=== PATIENT | female | born 1980 | race Caucasian/White ===

== ENCOUNTER 2018-09-04 11:25 | Emergency (ER) | payer OTHER, MEDICAID, SELFPAY ==
[2018-09-04 11:32] VITALS: BP 131/82; PULSE 128; RESP 20; TEMP 36.2; O2SAT 100; BMI 18.8
--- NOTE | 2018-09-04 12:10 | ED.ABDPAIN ---
HPI - Abdominal Pain <Zyada Carrion PA-C - Last Filed: 09/04/18 19:49> General Chief Complaint: Abdominal Pain Stated Complaint: Crohns Flare Time Seen by Provider: 09/04/18 12:06 Source: patient Mode of arrival: ambulatory Limitations: no limitations History of Present Illness HPI narrative: This 38-year-old female comes to ED secondary to ?Crohn's disease flare?. She states that for the last couple, she has felt miserable, with constant nausea and occasional vomiting (once today). She has intermittent crampy abdominal pain that comes and goes, better curled up on her side, worse stretching out. Her nausea is worse with food. She has been able to keep down small amounts of fluid. She states that she has felt somewhat cold and warm, does not think she has had a fever. She states that she had diarrhea once this morning with some blood in it, no mucus. She states that she has been under a considerable amount of stress with suddenly having to move here, and it is not unusual for her to have a flare under those circumstances. This feels typical to her. She denies any new urinary symptoms. She denies any possibility of . She states that if she has milder symptoms she will start sulfasalazine, but when more severe she typically needs prednisone as she thinks she might now. She has just moved here and does not have medicines. She denies any other complaints such as chest pain or dyspnea on systems review. She has not had any recent antibiotics or known exposures. She notes that her heart rate always tends to be a bit high. Related Data Previous Rx's Medication Instructions Recorded hydrocodone-acetaminophen [Armona] 1 tab PO Q4-6H PRN #7 tab 09/04/18 prednisone 40 mg PO DAILY 6 Days #12 tab 09/04/18 promethazine 25 mg SC Q6H #12 each 09/04/18 Allergies Allergy/AdvReac Type Severity Reaction Status Date / Time amoxicillin [From Augmentin] Allergy Diarrhea Verified 09/04/18 11:31 clavulanic acid Allergy Diarrhea Verified 09/04/18 11:31 [From Augmentin] Review of Systems <Zayda Carrion PA-C - Last Filed: 09/04/18 19:49> Review of Systems ROS Unobtainable: All systems reviewed & are unremarkable except as noted in HPI and below PFSH <Zayda Carrion PA-C - Last Filed: 09/04/18 19:49> Medical History (Updated 09/04/18 @ 16:20 by Zayda Carrion PA-C) Anxiety with depression (Chronic) Crohn's disease (Chronic) PTSD (post-traumatic stress disorder) (Chronic) Surgical History (Updated 09/04/18 @ 12:43 by Zayda Carrion PA-C) History of bowel resection (Resolved) Social History Smoking Status: Never smoker Social History Smoking Status: Never smoker Exam <Zayda Carrion PA-C - Last Filed: 09/04/18 19:49> Narrative Exam Narrative: GENERAL APPEARANCE: Patient resting, occasionally tearful but in NAD HEENT: PERRL, EOMI, conjunctivae pink no scleral icterus NECK: Supple, no masses LUNGS: Clear to auscultation bilaterally. HEART: Rate and rhythm regular, normal S1 and S2, no S3 or S4. ABDOMEN: Faded mid surgical scar noted. Soft, nondistended, bowel sounds present x 4 quadrants, no masses palpable, no hepatosplenomegaly. Generalized lower quadrant tenderness throughout without guarding or rebound, no CVAT EXTREMITIES: No edema, no cyanosis DERMATOLOGIC: No jaundice or exanthem NEUROLOGIC: Alert and oriented with normal speech and coordination Initial Vital Signs Initial Vital Signs: Vital Signs Temperature 97.1 F L 09/04/18 11:32 Pulse Rate 128 H 09/04/18 11:32 Respiratory Rate 20 09/04/18 11:32 Blood Pressure 131/82 09/04/18 11:32 Pulse Oximetry 100 09/04/18 11:32 <Noam Fritz DO - Last Filed: 09/06/18 07:53> Initial Vital Signs Initial Vital Signs: Vital Signs Temperature 97.1 F L 09/04/18 11:32 Pulse Rate 128 H 09/04/18 11:32 Respiratory Rate 20 09/04/18 11:32 Blood Pressure 131/82 09/04/18 11:32 Pulse Oximetry 100 09/04/18 11:32 Course <Zayda Carrion PA-C - Last Filed: 09/04/18 19:49> Additional Information: Patient reported good improvement in nausea, moderate improvement in pain prior to discharge. She is tolerating oral fluid, putting and applesauce. She feels as though this is similar to her previous Crohn's flares brought on by her stressors. Given prednisone here and she will continue this. She needs a local PCP for follow-up next week and will call Resource line on Thursday to get set up for follow-up. She agreed to return if any acutely worsening symptoms in the interim Orders Ordered: Discontinued Medications Acetaminophen (Tylenol) 650 mg PO NOW ONE Stop: 09/04/18 16:43 Last Admin: 09/04/18 16:43 Dose: 650 mg Sodium Chloride (Normal Saline 0.9%) 1,000 mls @ 1,000 mls/hr IV BOLUS ONE Stop: 09/04/18 13:26 Last Infusion: 09/04/18 15:45 Dose: 0 mls/hr Admin: 09/04/18 13:33 Dose: 500 mls/hr Morphine Sulfate (Morphine) 4 mg IV NOW ONE Stop: 09/04/18 13:04 Last Admin: 09/04/18 13:43 Dose: 4 mg Ondansetron HCl (Zofran) 4 mg IV NOW ONE Stop: 09/04/18 12:28 Last Admin: 09/04/18 13:34 Dose: 4 mg Prednisone (Deltasone) 40 mg PO NOW ONE Stop: 09/04/18 15:22 Last Admin: 09/04/18 15:27 Dose: 40 mg Vital Signs - 8 hr 09/04/18 13:45 09/04/18 15:29 09/04/18 16:55 Pulse Rate 87 87 80 Respiratory Rate 16 16 14 Blood Pressure [Left Arm] 114/82 115/79 114/72 Pulse Oximetry 100 100 <Noam Fritz DO - Last Filed: 09/06/18 07:53> Orders Ordered: Discontinued Medications Acetaminophen (Tylenol) 650 mg PO NOW ONE Stop: 09/04/18 16:43 Last Admin: 09/04/18 16:43 Dose: 650 mg Sodium Chloride (Normal Saline 0.9%) 1,000 mls @ 1,000 mls/hr IV BOLUS ONE Stop: 09/04/18 13:26 Last Infusion: 09/04/18 15:45 Dose: 0 mls/hr Admin: 09/04/18 13:33 Dose: 500 mls/hr Morphine Sulfate (Morphine) 4 mg IV NOW ONE Stop: 09/04/18 13:04 Last Admin: 09/04/18 13:43 Dose: 4 mg Ondansetron HCl (Zofran) 4 mg IV NOW ONE Stop: 09/04/18 12:28 Last Admin: 09/04/18 13:34 Dose: 4 mg Prednisone (Deltasone) 40 mg PO NOW ONE Stop: 09/04/18 15:22 Last Admin: 09/04/18 15:27 Dose: 40 mg Vital Signs - 8 hr 09/04/18 13:45 09/04/18 15:29 09/04/18 16:55 Pulse Rate 87 87 80 Respiratory Rate 16 16 14 Blood Pressure [Left Arm] 114/82 115/79 114/72 Pulse Oximetry 100 100 MDM - Abdominal Pain <Zayda Carrion PA-C - Last Filed: 09/04/18 19:49> Lab Data Result diagrams: 09/04/18 14:18 09/04/18 14:18 Lab Results 09/04/18 09/04/18 09/04/18 Range/Units 14:18 14:18 14:18 WBC 6.6 (4.5-11.0) X10^3/uL RBC 4.68 (4.0-5.2) X10^6/uL Hgb 14.1 (12.0-16.0) g/dL Hct 41.2 (36-46) % MCV 88.1 (80-100) fL MCH 30.2 (26-34) PG MCHC 34.3 (30-36) % RDW 13.9 (11.6-14.8) % Plt Count 214 (150-400) X10^3/uL Neut % (Auto) 87.7 H (50-75) % Lymph % (Auto) 8.6 L (25-40) % [place] % (Auto) 3.1 (3-14) % Eos % (Auto) 0.1 L (2-4) % Baso % (Auto) 0.5 (0-2) % Neut # (Auto) 5800 (0508-9725) /uL Lymph # (Auto) 600 L (3969-4386) /uL [place] # (Auto) 200 (0-900) /uL Eos # (Auto) 0 (0-450) /uL Baso # (Auto) 0 (0-100) /uL PT 11.7 (10.1-12.7) SECONDS INR 1.0 (0.9-1.3) APTT 34 (26.4-36.2) SECONDS Sodium 141 (137-145) mmol/L Potassium 4.3 (3.4-5.1) mmol/L Chloride 105 (98-107) mmol/L Carbon Dioxide 30 (22-32) mmol/L BUN 10 (7-17) mg/dL Creatinine 0.60 (0.52-1.04) mg/dL Estimated GFR > 60.0 (>60) mL/min BUN/Creatinine Ratio 16.7 (6-22) Glucose 94 (70-100) mg/dL Calcium 8.9 (8.4-10.2) mg/dL Total Bilirubin 0.4 (0.2-1.3) mg/dL AST 23 (14-36) IU/L ALT 34 (9-52) IU/L Alkaline Phosphatase 63 (38-126) U/L C-Reactive Protein (<1.0) mg/dL Total Protein 6.0 L (6.3-8.2) g/dL Albumin 3.6 (3.5-5.0) g/dL Globulin 2.4 (1.7-4.1) g/dL Albumin/Globulin Ratio 1.5 (1.0-2.8) Lipase 58 (23-300) U/L 09/04/18 Range/Units 14:18 WBC (4.5-11.0) X10^3/uL RBC (4.0-5.2) X10^6/uL Hgb (12.0-16.0) g/dL Hct (36-46) % MCV (80-100) fL MCH (26-34) PG MCHC (30-36) % RDW (11.6-14.8) % Plt Count (150-400) X10^3/uL Neut % (Auto) (50-75) % Lymph % (Auto) (25-40) % [place] % (Auto) (3-14) % Eos % (Auto) (2-4) % Baso % (Auto) (0-2) % Neut # (Auto) (1367-6442) /uL Lymph # (Auto) (3127-9763) /uL [place] # (Auto) (0-900) /uL Eos # (Auto) (0-450) /uL Baso # (Auto) (0-100) /uL PT (10.1-12.7) SECONDS INR (0.9-1.3) APTT (26.4-36.2) SECONDS Sodium (137-145) mmol/L Potassium (3.4-5.1) mmol/L Chloride (98-107) mmol/L Carbon Dioxide (22-32) mmol/L BUN (7-17) mg/dL Creatinine (0.52-1.04) mg/dL Estimated GFR (>60) mL/min BUN/Creatinine Ratio (6-22) Glucose (70-100) mg/dL Calcium (8.4-10.2) mg/dL Total Bilirubin (0.2-1.3) mg/dL AST (14-36) IU/L ALT (9-52) IU/L Alkaline Phosphatase (38-126) U/L C-Reactive Protein < 0.5 (<1.0) mg/dL Total Protein (6.3-8.2) g/dL Albumin (3.5-5.0) g/dL Globulin (1.7-4.1) g/dL Albumin/Globulin Ratio (1.0-2.8) Lipase (23-300) U/L Point of care testing: Point of Care Testing Test Results Negative Urine Dip Bedside Urine Glucose Negative Bedside Urine Bilirubin - Negative Bedside Urine Ketone - Negative Urine Specific Crystal 1.015 Bedside Urine Occult Blood - Negative Bedside Urine pH 6.0 Bedside Urine Protein - Negative Bedside Urine Urobilinogen - Negative Bedside Urine Nitrite - Negative Bedside Urine Leukocytes - Negative Esterase ECG Data Attestation: I personally reviewed and interpreted this ECG as follows: (Sinus tachycardia, rate 128, normal axis) Prior ECG tracings: not available for review <Noam Fritz DO - Last Filed: 09/06/18 07:53> Lab Data Lab Results 09/04/18 09/04/18 09/04/18 Range/Units 14:18 14:18 14:18 WBC 6.6 (4.5-11.0) X10^3/uL RBC 4.68 (4.0-5.2) X10^6/uL Hgb 14.1 (12.0-16.0) g/dL Hct 41.2 (36-46) % MCV 88.1 (80-100) fL MCH 30.2 (26-34) PG MCHC 34.3 (30-36) % RDW 13.9 (11.6-14.8) % Plt Count 214 (150-400) X10^3/uL Neut % (Auto) 87.7 H (50-75) % Lymph % (Auto) 8.6 L (25-40) % [place] % (Auto) 3.1 (3-14) % Eos % (Auto) 0.1 L (2-4) % Baso % (Auto) 0.5 (0-2) % Neut # (Auto) 5800 (1907-6414) /uL Lymph # (Auto) 600 L (3156-2222) /uL [place] # (Auto) 200 (0-900) /uL Eos # (Auto) 0 (0-450) /uL Baso # (Auto) 0 (0-100) /uL PT 11.7 (10.1-12.7) SECONDS INR 1.0 (0.9-1.3) APTT 34 (26.4-36.2) SECONDS Sodium 141 (137-145) mmol/L Potassium 4.3 (3.4-5.1) mmol/L Chloride 105 (98-107) mmol/L Carbon Dioxide 30 (22-32) mmol/L BUN 10 (7-17) mg/dL Creatinine 0.60 (0.52-1.04) mg/dL Estimated GFR > 60.0 (>60) mL/min BUN/Creatinine Ratio 16.7 (6-22) Glucose 94 (70-100) mg/dL Calcium 8.9 (8.4-10.2) mg/dL Total Bilirubin 0.4 (0.2-1.3) mg/dL AST 23 (14-36) IU/L ALT 34 (9-52) IU/L Alkaline Phosphatase 63 (38-126) U/L C-Reactive Protein (<1.0) mg/dL Total Protein 6.0 L (6.3-8.2) g/dL Albumin 3.6 (3.5-5.0) g/dL Globulin 2.4 (1.7-4.1) g/dL Albumin/Globulin Ratio 1.5 (1.0-2.8) Lipase 58 (23-300) U/L 09/04/ Range/Units 14:18 WBC (4.5-11.0) X10^3/uL RBC (4.0-5.2) X10^6/uL Hgb (12.0-16.0) g/dL Hct (36-46) % MCV (80-100) fL MCH (26-34) PG MCHC (30-36) % RDW (11.6-14.8) % Plt Count (150-400) X10^3/uL Neut % (Auto) (50-75) % Lymph % (Auto) (25-40) % [place] % (Auto) (3-14) % Eos % (Auto) (2-4) % Baso % (Auto) (0-2) % Neut # (Auto) (3605-9609) /uL Lymph # (Auto) (8215-5061) /uL [place] # (Auto) (0-900) /uL Eos # (Auto) (0-450) /uL Baso # (Auto) (0-100) /uL PT (10.1-12.7) SECONDS INR (0.9-1.3) APTT (26.4-36.2) SECONDS Sodium (137-145) mmol/L Potassium (3.4-5.1) mmol/L Chloride (98-107) mmol/L Carbon Dioxide (22-32) mmol/L BUN (7-17) mg/dL Creatinine (0.52-1.04) mg/dL Estimated GFR (>60) mL/min BUN/Creatinine Ratio (6-22) Glucose (70-100) mg/dL Calcium (8.4-10.2) mg/dL Total Bilirubin (0.2-1.3) mg/dL AST (14-36) IU/L ALT (9-52) IU/L Alkaline Phosphatase (38-126) U/L C-Reactive Protein < 0.5 (<1.0) mg/dL Total Protein (6.3-8.2) g/dL Albumin (3.5-5.0) g/dL Globulin (1.7-4.1) g/dL Albumin/Globulin Ratio (1.0-2.8) Lipase (23-300) U/L Point of care testing: Point of Care Testing Test Results Negative Urine Dip Bedside Urine Glucose Negative Bedside Urine Bilirubin - Negative Bedside Urine Ketone - Negative Urine Specific [place] 1.015 Bedside Urine Occult Blood - Negative Bedside Urine pH 6.0 Bedside Urine Protein - Negative Bedside Urine Urobilinogen - Negative Bedside Urine Nitrite - Negative Bedside Urine Leukocytes - Negative Esterase Discharge Plan Departure Patient Disposition: Home Clinical Impression: Crohn's colitis Qualifiers: Digestive disease complication type: with rectal bleeding Qualified Code(s): K50.111 - Crohn's disease of large intestine with rectal bleeding Discharge Date/Time: 09/04/18 16:56 Interventions: ED Discharge Assessment Last Done: 09/04/18 16:55 Instructions: DI for Crohn's Disease Flare Activity Restrictions/Additional Instructions: You should return to the emergency department as we talked about if you have acutely worsening symptoms, i.e. acutely worsening pain or unable to keep down fluids, or new symptoms such as high fever. Please take your next dose of prednisone tomorrow (I have sent in a week supply for you, and then you will need to continue or taper depending upon how you are feeling next week when you see your new primary care provider). I have also sent in a prescription for promethazine for you since that has been helpful in the past. I have given you a prescription for a few hydrocodone/acetaminophen since you have taken that in the past, hopefully the prednisone will help your for pain and inflammation quickly so you should need that for more than a day or so. Please continue to drink plenty of clear fluids and eat bland foods like applesauce, bananas, white rice, white toast. Remember no driving with the pain or nausea medicine as they can make you sleepy Please call the hospital health human resources assistant manager at [phone] 1st thing on Thursday morning. Let them know you were seen here in the emergency room and that we need to have you follow-up with a primary care provider middle of next week for reassessment. Please talk with your new primary care provider about restarting your anxiety medicines as well as getting a referral to a GI specialist Prescriptions: New prednisone 20 mg tablet 40 mg PO DAILY 6 Days Qty: 12 RF: 0 promethazine 25 mg suppository 25 mg SC Q6H Qty: 12 RF: 0 hydrocodone-acetaminophen [Armona] 5-325 mg tablet 1 tab PO Q4-6H PRN (Reason: acute abdominal pain) Qty: 7 RF: 0 <Noam Fritz DO - Last Filed: 09/06/18 07:53> [facility] Attestation: I was available for consultation during this patient's emergency department encounter
--- NOTE | 2018-09-04 12:13 | ED_ITS ---
HPI - Abdominal Pain <Zayda Carrion PA-C - Last Filed: 09/04/18 19:49> General Chief Complaint: Abdominal Pain Stated Complaint: Crohns Flare Time Seen by Provider: 09/04/18 12:06 Source: patient Mode of arrival: ambulatory Limitations: no limitations History of Present Illness HPI narrative: This 38-year-old female comes to ED secondary to ?Crohn's disease flare?. She states that for the last couple, she has felt miserable, with constant nausea and occasional vomiting (once today). She has intermittent crampy abdominal pain that comes and goes, better curled up on her side, worse stretching out. Her nausea is worse with food. She has been able to keep down small amounts of fluid. She states that she has felt somewhat cold and warm, does not think she has had a fever. She states that she had diarrhea once this morning with some blood in it, no mucus. She states that she has been under a considerable amount of stress with suddenly having to move here, and it is not unusual for her to have a flare under those circumstances. This feels typical to her. She denies any new urinary symptoms. She denies any possibility of . She states that if she has milder symptoms she will start sulfasalazine, but when more severe she typically needs prednisone as she thinks she might now. She has just moved here and does not have medicines. She denies any other complaints such as chest pain or dyspnea on systems review. She has not had any recent antibiotics or known exposures. She notes that her heart rate always tends to be a bit high. Related Data Previous Rx's Medication Instructions Recorded hydrocodone-acetaminophen [[place]] 1 tab PO Q4-6H PRN #7 tab 09/04/18 prednisone 40 mg PO DAILY 6 Days #12 tab 09/04/18 promethazine 25 mg IA Q6H #12 each 09/04/18 Allergies Allergy/AdvReac Type Severity Reaction Status Date / Time amoxicillin [From Augmentin] Allergy Diarrhea Verified 09/04/18 11:31 clavulanic acid Allergy Diarrhea Verified 09/04/18 11:31 [From Augmentin] Review of Systems <Zayda Carrion PA-C - Last Filed: 09/04/18 19:49> Review of Systems ROS Unobtainable: All systems reviewed & are unremarkable except as noted in HPI and below PFSH <Zayda Carrion PA-C - Last Filed: 09/04/18 19:49> Medical History (Updated 09/04/18 @ 16:20 by Zayda Carrion PA-C) Anxiety with depression (Chronic) Crohn's disease (Chronic) PTSD (post-traumatic stress disorder) (Chronic) Surgical History (Updated 09/04/18 @ 12:43 by Zayda Carrion PA-C) History of bowel resection (Resolved) Social History Smoking Status: Never smoker Social History Smoking Status: Never smoker Exam <Zayda Carrion PA-C - Last Filed: 09/04/18 19:49> Narrative Exam Narrative: GENERAL APPEARANCE: Patient resting, occasionally tearful but in NAD HEENT: PERRL, EOMI, conjunctivae pink no scleral icterus NECK: Supple, no masses LUNGS: Clear to auscultation bilaterally. HEART: Rate and rhythm regular, normal S1 and S2, no S3 or S4. ABDOMEN: Faded mid surgical scar noted. Soft, nondistended, bowel sounds present x 4 quadrants, no masses palpable, no hepatosplenomegaly. Generalized lower quadrant tenderness throughout without guarding or rebound, no CVAT EXTREMITIES: No edema, no cyanosis DERMATOLOGIC: No jaundice or exanthem NEUROLOGIC: Alert and oriented with normal speech and coordination Initial Vital Signs Initial Vital Signs: Vital Signs Temperature 97.1 F L 09/04/18 11:32 Pulse Rate 128 H 09/04/18 11:32 Respiratory Rate 20 09/04/18 11:32 Blood Pressure 131/82 09/04/18 11:32 Pulse Oximetry 100 09/04/18 11:32 <Noam Fritz DO - Last Filed: 09/06/18 07:53> Initial Vital Signs Initial Vital Signs: Vital Signs Temperature 97.1 F L 09/04/18 11:32 Pulse Rate 128 H 09/04/18 11:32 Respiratory Rate 20 09/04/18 11:32 Blood Pressure 131/82 09/04/18 11:32 Pulse Oximetry 100 09/04/18 11:32 Course <Zayda Carrion PA-C - Last Filed: 09/04/18 19:49> Additional Information: Patient reported good improvement in nausea, moderate improvement in pain prior to discharge. She is tolerating oral fluid, putting and applesauce. She feels as though this is similar to her previous Crohn's flares brought on by her stressors. Given prednisone here and she will continue this. She needs a local PCP for follow-up next week and will call Resource line on Thursday to get set up for follow-up. She agreed to return if any acutely worsening symptoms in the interim Orders Ordered: Discontinued Medications Acetaminophen (Tylenol) 650 mg PO NOW ONE Stop: 09/04/18 16:43 Last Admin: 09/04/18 16:43 Dose: 650 mg Sodium Chloride (Normal Saline 0.9%) 1,000 mls @ 1,000 mls/hr IV BOLUS ONE Stop: 09/04/18 13:26 Last Infusion: 09/04/18 15:45 Dose: 0 mls/hr Admin: 09/04/18 13:33 Dose: 500 mls/hr Morphine Sulfate (Morphine) 4 mg IV NOW ONE Stop: 09/04/18 13:04 Last Admin: 09/04/18 13:43 Dose: 4 mg Ondansetron HCl (Zofran) 4 mg IV NOW ONE Stop: 09/04/18 12:28 Last Admin: 09/04/18 13:34 Dose: 4 mg Prednisone (Deltasone) 40 mg PO NOW ONE Stop: 09/04/18 15:22 Last Admin: 09/04/18 15:27 Dose: 40 mg Vital Signs - 8 hr 09/04/18 13:45 09/04/18 15:29 09/04/18 16:55 Pulse Rate 87 87 80 Respiratory Rate 16 16 14 Blood Pressure [Left Arm] 114/82 115/79 114/72 Pulse Oximetry 100 100 <Noam Fritz DO - Last Filed: 09/06/18 07:53> Orders Ordered: Discontinued Medications Acetaminophen (Tylenol) 650 mg PO NOW ONE Stop: 09/04/18 16:43 Last Admin: 09/04/18 16:43 Dose: 650 mg Sodium Chloride (Normal Saline 0.9%) 1,000 mls @ 1,000 mls/hr IV BOLUS ONE Stop: 09/04/18 13:26 Last Infusion: 09/04/18 15:45 Dose: 0 mls/hr Admin: 09/04/18 13:33 Dose: 500 mls/hr Morphine Sulfate (Morphine) 4 mg IV NOW ONE Stop: 09/04/18 13:04 Last Admin: 09/04/18 13:43 Dose: 4 mg Ondansetron HCl (Zofran) 4 mg IV NOW ONE Stop: 09/04/18 12:28 Last Admin: 09/04/18 13:34 Dose: 4 mg Prednisone (Deltasone) 40 mg PO NOW ONE Stop: 09/04/18 15:22 Last Admin: 09/04/18 15:27 Dose: 40 mg Vital Signs - 8 hr 09/04/18 13:45 09/04/18 15:29 09/04/18 16:55 Pulse Rate 87 87 80 Respiratory Rate 16 16 14 Blood Pressure [Left Arm] 114/82 115/79 114/72 Pulse Oximetry 100 100 MDM - Abdominal Pain <Zayda Carrion PA-C - Last Filed: 09/04/18 19:49> Lab Data Result diagrams: 09/04/18 14:18 09/04/18 14:18 Lab Results 09/04/18 09/04/18 09/04/18 Range/Units 14:18 14:18 14:18 WBC 6.6 (4.5-11.0) X10^3/uL RBC 4.68 (4.0-5.2) X10^6/uL Hgb 14.1 (12.0-16.0) g/dL Hct 41.2 (36-46) % MCV 88.1 (80-100) fL MCH 30.2 (26-34) PG MCHC 34.3 (30-36) % RDW 13.9 (11.6-14.8) % Plt Count 214 (150-400) X10^3/uL Neut % (Auto) 87.7 H (50-75) % Lymph % (Auto) 8.6 L (25-40) % Tyler % (Auto) 3.1 (3-14) % Eos % (Auto) 0.1 L (2-4) % Baso % (Auto) 0.5 (0-2) % Neut # (Auto) 5800 (4369-6121) /uL Lymph # (Auto) 600 L (4374-1023) /uL Tyler # (Auto) 200 (0-900) /uL Eos # (Auto) 0 (0-450) /uL Baso # (Auto) 0 (0-100) /uL PT 11.7 (10.1-12.7) SECONDS INR 1.0 (0.9-1.3) APTT 34 (26.4-36.2) SECONDS Sodium 141 (137-145) mmol/L Potassium 4.3 (3.4-5.1) mmol/L Chloride 105 (98-107) mmol/L Carbon Dioxide 30 (22-32) mmol/L BUN 10 (7-17) mg/dL Creatinine 0.60 (0.52-1.04) mg/dL Estimated GFR > 60.0 (>60) mL/min BUN/Creatinine Ratio 16.7 (6-22) Glucose 94 (70-100) mg/dL Calcium 8.9 (8.4-10.2) mg/dL Total Bilirubin 0.4 (0.2-1.3) mg/dL AST 23 (14-36) IU/L ALT 34 (9-52) IU/L Alkaline Phosphatase 63 (38-126) U/L C-Reactive Protein (<1.0) mg/dL Total Protein 6.0 L (6.3-8.2) g/dL Albumin 3.6 (3.5-5.0) g/dL Globulin 2.4 (1.7-4.1) g/dL Albumin/Globulin Ratio 1.5 (1.0-2.8) Lipase 58 (23-300) U/L 09/04/18 Range/Units 14:18 WBC (4.5-11.0) X10^3/uL RBC (4.0-5.2) X10^6/uL Hgb (12.0-16.0) g/dL Hct (36-46) % MCV (80-100) fL MCH (26-34) PG MCHC (30-36) % RDW (11.6-14.8) % Plt Count (150-400) X10^3/uL Neut % (Auto) (50-75) % Lymph % (Auto) (25-40) % Tyler % (Auto) (3-14) % Eos % (Auto) (2-4) % Baso % (Auto) (0-2) % Neut # (Auto) (7212-4286) /uL Lymph # (Auto) (2049-1279) /uL Tyler # (Auto) (0-900) /uL Eos # (Auto) (0-450) /uL Baso # (Auto) (0-100) /uL PT (10.1-12.7) SECONDS INR (0.9-1.3) APTT (26.4-36.2) SECONDS Sodium (137-145) mmol/L Potassium (3.4-5.1) mmol/L Chloride (98-107) mmol/L Carbon Dioxide (22-32) mmol/L BUN (7-17) mg/dL Creatinine (0.52-1.04) mg/dL Estimated GFR (>60) mL/min BUN/Creatinine Ratio (6-22) Glucose (70-100) mg/dL Calcium (8.4-10.2) mg/dL Total Bilirubin (0.2-1.3) mg/dL AST (14-36) IU/L ALT (9-52) IU/L Alkaline Phosphatase (38-126) U/L C-Reactive Protein < 0.5 (<1.0) mg/dL Total Protein (6.3-8.2) g/dL Albumin (3.5-5.0) g/dL Globulin (1.7-4.1) g/dL Albumin/Globulin Ratio (1.0-2.8) Lipase (23-300) U/L Point of care testing: Point of Care Testing Test Results Negative Urine Dip Bedside Urine Glucose Negative Bedside Urine Bilirubin - Negative Bedside Urine Ketone - Negative Urine Specific [place] 1.015 Bedside Urine Occult Blood - Negative Bedside Urine pH 6.0 Bedside Urine Protein - Negative Bedside Urine Urobilinogen - Negative Bedside Urine Nitrite - Negative Bedside Urine Leukocytes - Negative Esterase ECG Data Attestation: I personally reviewed and interpreted this ECG as follows: (Sinus tachycardia, rate 128, normal axis) Prior ECG tracings: not available for review <Noam Fritz DO - Last Filed: 09/06/18 07:53> Lab Data Lab Results 09/04/18 09/04/18 09/04/18 Range/Units 14:18 14:18 14:18 WBC 6.6 (4.5-11.0) X10^3/uL RBC 4.68 (4.0-5.2) X10^6/uL Hgb 14.1 (12.0-16.0) g/dL Hct 41.2 (36-46) % MCV 88.1 (80-100) fL MCH 30.2 (26-34) PG MCHC 34.3 (30-36) % RDW 13.9 (11.6-14.8) % Plt Count 214 (150-400) X10^3/uL Neut % (Auto) 87.7 H (50-75) % Lymph % (Auto) 8.6 L (25-40) % Tyler % (Auto) 3.1 (3-14) % Eos % (Auto) 0.1 L (2-4) % Baso % (Auto) 0.5 (0-2) % Neut # (Auto) 5800 (5958-2760) /uL Lymph # (Auto) 600 L (9956-0907) /uL Tyler # (Auto) 200 (0-900) /uL Eos # (Auto) 0 (0-450) /uL Baso # (Auto) 0 (0-100) /uL PT 11.7 (10.1-12.7) SECONDS INR 1.0 (0.9-1.3) APTT 34 (26.4-36.2) SECONDS Sodium 141 (137-145) mmol/L Potassium 4.3 (3.4-5.1) mmol/L Chloride 105 (98-107) mmol/L Carbon Dioxide 30 (22-32) mmol/L BUN 10 (7-17) mg/dL Creatinine 0.60 (0.52-1.04) mg/dL Estimated GFR > 60.0 (>60) mL/min BUN/Creatinine Ratio 16.7 (6-22) Glucose 94 (70-100) mg/dL Calcium 8.9 (8.4-10.2) mg/dL Total Bilirubin 0.4 (0.2-1.3) mg/dL AST 23 (14-36) IU/L ALT 34 (9-52) IU/L Alkaline Phosphatase 63 (38-126) U/L C-Reactive Protein (<1.0) mg/dL Total Protein 6.0 L (6.3-8.2) g/dL Albumin 3.6 (3.5-5.0) g/dL Globulin 2.4 (1.7-4.1) g/dL Albumin/Globulin Ratio 1.5 (1.0-2.8) Lipase 58 (23-300) U/L 09/04/ Range/Units 14:18 WBC (4.5-11.0) X10^3/uL RBC (4.0-5.2) X10^6/uL Hgb (12.0-16.0) g/dL Hct (36-46) % MCV (80-100) fL MCH (26-34) PG MCHC (30-36) % RDW (11.6-14.8) % Plt Count (150-400) X10^3/uL Neut % (Auto) (50-75) % Lymph % (Auto) (25-40) % Tyler % (Auto) (3-14) % Eos % (Auto) (2-4) % Baso % (Auto) (0-2) % Neut # (Auto) (0202-9998) /uL Lymph # (Auto) (1258-3311) /uL Tyler # (Auto) (0-900) /uL Eos # (Auto) (0-450) /uL Baso # (Auto) (0-100) /uL PT (10.1-12.7) SECONDS INR (0.9-1.3) APTT (26.4-36.2) SECONDS Sodium (137-145) mmol/L Potassium (3.4-5.1) mmol/L Chloride (98-107) mmol/L Carbon Dioxide (22-32) mmol/L BUN (7-17) mg/dL Creatinine (0.52-1.04) mg/dL Estimated GFR (>60) mL/min BUN/Creatinine Ratio (6-22) Glucose (70-100) mg/dL Calcium (8.4-10.2) mg/dL Total Bilirubin (0.2-1.3) mg/dL AST (14-36) IU/L ALT (9-52) IU/L Alkaline Phosphatase (38-126) U/L C-Reactive Protein < 0.5 (<1.0) mg/dL Total Protein (6.3-8.2) g/dL Albumin (3.5-5.0) g/dL Globulin (1.7-4.1) g/dL Albumin/Globulin Ratio (1.0-2.8) Lipase (23-300) U/L Point of care testing: Point of Care Testing Test Results Negative Urine Dip Bedside Urine Glucose Negative Bedside Urine Bilirubin - Negative Bedside Urine Ketone - Negative Urine Specific [place] 1.015 Bedside Urine Occult Blood - Negative Bedside Urine pH 6.0 Bedside Urine Protein - Negative Bedside Urine Urobilinogen - Negative Bedside Urine Nitrite - Negative Bedside Urine Leukocytes - Negative Esterase Discharge Plan Departure Patient Disposition: Home Clinical Impression: Crohn's colitis Qualifiers: Digestive disease complication type: with rectal bleeding Qualified Code(s): K50.111 - Crohn's disease of large intestine with rectal bleeding Discharge Date/Time: 09/04/18 16:56 Interventions: ED Discharge Assessment Last Done: 09/04/18 16:55 Instructions: DI for Crohn's Disease Flare Activity Restrictions/Additional Instructions: You should return to the emergency department as we talked about if you have acutely worsening symptoms, i.e. acutely worsening pain or unable to keep down fluids, or new symptoms such as high fever. Please take your next dose of prednisone tomorrow (I have sent in a week supply for you, and then you will need to continue or taper depending upon how you are feeling next week when you see your new primary care provider). I have also sent in a prescription for promethazine for you since that has been helpful in the past. I have given you a prescription for a few hydrocodone/acetaminophen since you have taken that in the past, hopefully the prednisone will help your for pain and inflammation quickly so you should need that for more than a day or so. Please continue to drink plenty of clear fluids and eat bland foods like applesauce, bananas, white rice, white toast. Remember no driving with the pain or nausea medicine as they can make you sleepy Please call the hospital health human resource manager at 1st thing on Thursday morning. Let them know you were seen here in the emergency room and that we need to have you follow-up with a primary care provider middle of next week for reassessment. Please talk with your new primary care provider about restarting your anxiety medicines as well as getting a referral to a GI specialist Prescriptions: New prednisone 20 mg tablet 40 mg PO DAILY 6 Days Qty: 12 RF: 0 promethazine 25 mg suppository 25 mg IA Q6H Qty: 12 RF: 0 hydrocodone-acetaminophen [[place]] 5-325 mg tablet 1 tab PO Q4-6H PRN (Reason: acute abdominal pain) Qty: 7 RF: 0 <Noam Fritz DO - Last Filed: 09/06/18 07:53> [facility] H[facility]ctor Attestation: I was available for consultation during this patient's emergency department encounter
[2018-09-04] MEDS: SODIUM CHLORIDE 0.9% 1,000 ML 500 ML IV (13:33)
[2018-09-04] MEDS: ONDANSETRON 4 MG/2 ML INJ IV (13:34)
[2018-09-04] MEDS: MORPHINE 4 MG/ML INJ IV (13:43)
--- NOTE | 2018-09-04 13:44 | PC.NURSE ---
pt with hx of chrons, under alot of stressed, reports, vomiting and diarrhea for 3 days. deneis fever.
[2018-09-04 13:45] VITALS: BP 114/82; PULSE 87; RESP 16; O2SAT 100
[2018-09-04 14:26] LABS: Add Manual Diff / Slide Review NO; Basophils Absolute Auto 0 /uL (0-100); Basophils Percent Auto 0.5 % (0-2); Eosinophils Absolute Auto 0 /uL (0-450); Eosinophils Percent Auto 0.1 % (2-4); Hematocrit 41.2 % (36-46); Hemoglobin 14.1 g/dL (12.0-16.0); Lymphocytes Absolute Auto 600 /uL (1100-4500); Lymphocytes Percent Auto 8.6 % (25-40); Mean Corpuscular HGB Conc 34.3 % (30-36); Mean Corpuscular Hemoglobin 30.2 PG (26-34); Mean Corpuscular Volume 88.1 fL (80-100); Monocytes Absolute Auto 200 /uL (0-900); Monocytes Percent Auto 3.1 % (3-14); Neutrophils Absolute Auto 5800 /uL (1500-7000); Neutrophils Percent Auto 87.7 % (50-75); Platelet Count 214 X10^3/uL (150-400); Red Blood Cell Count 4.68 X10^6/uL (4.0-5.2); Red Cell Distribution Width 13.9 % (11.6-14.8); White Blood Cell Count 6.6 X10^3/uL (4.5-11.0)
[2018-09-04 14:34] LABS: Prothrombin Time 11.7 SECONDS (10.1-12.7)
[2018-09-04 14:36] LABS: PTT Partial Thromboplastin Tim 34 SECONDS (26.4-36.2)
[2018-09-04 14:37] LABS: Alanine Aminotransferase 34 IU/L (9-52); Albumin 3.6 g/dL (3.5-5.0); Albumin Globulin Ratio 1.5 (1.0-2.8); Alkaline Phosphatase 63 U/L (38-126); Aspartate Aminotransferase 23 IU/L (14-36); BUN Creatinine Ratio 16.7 (6-22); Bilirubin Total 0.4 mg/dL (0.2-1.3); Blood Urea Nitrogen 10 mg/dL (7-17); Calcium 8.9 mg/dL (8.4-10.2); Carbon Dioxide 30 mmol/L (22-32); Chloride 105 mmol/L (98-107); Estimated Glomerular Filt Rate > 60.0 mL/min (>60); Globulin 2.4 g/dL (1.7-4.1); Glucose 94 mg/dL (70-100); HEMOLYSIS < 15 (0-50); Lipase 58 U/L (23-300); Potassium 4.3 mmol/L (3.4-5.1); Sodium 141 mmol/L (137-145)
[2018-09-04 15:00] LABS: C-Reactive Protein Quant < 0.5 mg/dL (<1.0)
[2018-09-04] MEDS: predniSONE 20 MG TABLET 40 MG PO (15:27)
[2018-09-04 15:29] VITALS: BP 115/79; PULSE 87; RESP 16; O2SAT 100
[2018-09-04] MEDS: ACETAMINOPHEN 325 MG TABLET 650 MG PO (16:43)
[2018-09-04 16:55] VITALS: BP 114/72; PULSE 80; RESP 14
== END 2018-09-04 16:56 | disposition home or self-care (01) ==
PROVIDERS: Emergency Medicine; Emergency Provider Internal Medicine
DX: K50.111 Crohn's disease of large intestine with rectal bleeding (principal); R00.0 Tachycardia, unspecified
CPT/HCPCS: 36415; 80053; 81003; 81025; 83690; 85025; 85610; 85730; 86140; 93005; 96361; 96374; 96375; 99284; J2270; J2405